=== PATIENT | female | born 1980 | race Caucasian/White ===

== ENCOUNTER 2016-12-23 21:04 | Emergency (ER) | payer OTHER ==
[2016-12-23 21:20] VITALS: BP 125/71
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
== END 2016-12-23 22:48 | disposition home or self-care (01) ==
LOC: UCEAST 21:04
DX: S39.012A Strain of muscle, fascia and tendon of lower back, initial encounter (principal); X58.XXXA Exposure to other specified factors, initial encounter; Z88.0 Allergy status to penicillin; Z88.2 Allergy status to sulfonamides; Y92.9 Unspecified place or not applicable
CPT/HCPCS: 81003; 99211; G0463

== ENCOUNTER 2017-03-18 14:02 | Emergency (ER) | payer OTHER ==
[2017-03-18 14:30] VITALS: BP 123/74
--- NOTE | 2017-03-18 14:50 | UC ---
Skin Complaint HPI - HPI Summary HPI Summary: rash on chest wall after having 24 hour cardiac electrodes attached--red raised and itchy has had reactions to other adhesives in the past - History of Current Complaint Chief Complaint: UCSkin Time Seen by Provider: 03/18/17 14:39 Stated Complaint: RASH Hx Obtained From: Patient Hx Last Menstrual Period: 2 years ?: No Onset/Duration: Sudden Onset, Lasting Days, Still Present Skin Exposure Onset/Duration: Days Ago - 2 -3 days ago Timing: Constant Onset Severity: Mild Current Severity: Moderate Pain Intensity: 5 - itching Location: Discrete - chest wall Character: Swelling, Redness, Raised Aggravating: Nothing Alleviating: Nothing Associated Signs & Symptoms: Positive: Rash, Tenderness Related History: Possible Reaction to: Environmental Exposure - adhesive - Allergy/Home Medications Allergies/Adverse Reactions: Allergies Allergy/AdvReac Type Severity Reaction Status Date / Time Clarithromycin [From Biaxin] Allergy Severe HORRIBLE Verified 03/18/17 14:22 TASTE IN MOUTH, OTHERS UNKNOWN Sulfa Antibiotics Allergy Severe Rash Verified 03/18/17 14:22 Adhesive Tape Allergy Rash Verified 03/18/17 14:22 Cephalexin [From Keflex] Allergy Rash Verified 03/18/17 14:22 Penicillins Allergy Rash Verified 03/18/17 14:22 ENVIRONMENTAL/SEASONAL Allergy ITCHY Uncoded 03/18/17 14:22 WATERY EYES, SNEEZING Review of Systems Constitutional: Negative Skin: Rash - anterior chest wall where cardiac electrodes were placed for a 24 hour holter monitor Eyes: Negative ENT: Negative Respiratory: Negative Cardiovascular: Negative Gastrointestinal: Negative Genitourinary: Negative Motor: Negative Neurovascular: Negative Musculoskeletal: Negative Neurological: Negative Psychological: Negative All Other Systems Reviewed And Are Negative: Yes PMH/Surg Hx/FS Hx/Imm Hx Previously Healthy: Yes GI/ History: Gastroesophageal Reflux Other History Of: Negative For: HIV, Hepatitis B, Hepatitis C - Surgical History Surgical History: Yes Surgery Procedure, Year, and Place: Essure procedure - Family History Known Family History: Positive: Cardiac Disease, Hypertension - Social History Occupation: Employed Full-time Lives: With Family Alcohol Use: Rare Substance Use Type: None Smoking Status (MU): Never Smoked Tobacco Physical Exam Triage Information Reviewed: Yes Appearance: Well-Appearing, No Pain Distress, Well-Nourished Vital Signs: Initial Vital Signs Temp 97.8 F 03/18/17 14:24 Pulse 73 03/18/17 14:24 Resp 16 03/18/17 14:24 BP 123/74 03/18/17 14:24 Pulse Ox 98 03/18/17 14:24 Vital Signs Reviewed: Yes Eye Exam: Normal Eyes: Positive: Conjunctiva Clear ENT Exam: Normal ENT: Positive: Normal ENT inspection, Hearing grossly normal. Negative: Nasal congestion, Nasal drainage, Trismus, Muffled/hoarse voice Dental Exam: Normal Neck exam: Normal Neck: Positive: Supple, Nontender Respiratory Exam: Normal Respiratory: Positive: No respiratory distress, No accessory muscle use Cardiovascular Exam: Normal Cardiovascular: Positive: RRR, Pulses Normal, Brisk Capillary Refill Musculoskeletal Exam: Normal Musculoskeletal: Positive: Strength Intact, ROM Intact, No Edema Neurological Exam: Normal Neurological: Positive: Alert, Muscle Tone Normal Psychological Exam: Normal Skin Exam: Other Skin: Positive: Other - Red raise itchy rash from cardiac electrodes place -Sunday Course/Dx - Course Course Of Treatment: gentle soap and water wash, lidex cream---follow with pcp prn - Differential Diagnoses - Skin Complaint Differential Diagnoses: Allergic Reaction, Cellulitis, Impetigo - Diagnoses Provider Diagnoses: Localized reaction to skin adhesive Discharge - Discharge Plan Condition: Stable Disposition: HOME Prescriptions: Fluocinonide 0.05% CM(NF) [Lidex 0.05% CREAM(NF)] 1 applic .SEE ORDER BID #60 gm Patient Education Materials: Diphenhydramine (By mouth), General Allergic Reaction (ED) Referrals: Syed Harmon MD [Primary Care Provider] - If Needed
== END 2017-03-18 14:54 | disposition home or self-care (01) ==
LOC: UCEAST 14:02
DX: T78.40XA Allergy, unspecified, initial encounter (principal); Z88.0 Allergy status to penicillin; Z88.2 Allergy status to sulfonamides
CPT/HCPCS: 99212; G0463

== ENCOUNTER 2018-02-11 20:34 | Emergency (ER) | payer OTHER ==
[2018-02-11 20:50] VITALS: BP 137/92
--- NOTE | 2018-02-11 22:12 | UC ---
Hand/Wrist HPI - HPI Summary HPI Summary: 37 yo female noted painful lump 2nd MCP joint pain increasing - History Of Current Complaint Chief Complaint: UCUpperExtremity Stated Complaint: BUMP ON HAND Time Seen by Provider: 02/11/18 21:57 Hx Obtained From: Patient Hx Last Menstrual Period: 4-5 yrs ago Onset/Duration: Gradual Onset, Lasting Weeks Severity Initially: Mild Severity Currently: Moderate Pain Intensity: 8 - touching it Pain Scale Used: 0-10 Numeric Character Of Pain: Aching, Throbbing Aggravating Factor(s): Movement Related History: Dominant Hand Right - Allergies/Home Medications Allergies/Adverse Reactions: Allergies Allergy/AdvReac Type Severity Reaction Status Date / Time Adhesive Tape Allergy Rash Verified 03/18/17 14:22 cephalexin [From Keflex] Allergy Rash Verified 02/11/18 20:52 clarithromycin [From Biaxin] Allergy See Comment Verified 02/11/18 20:53 Penicillins Allergy Rash Verified 02/11/18 20:52 Sulfa (Sulfonamide Allergy Rash Verified 02/11/18 20:53 Antibiotics) ENVIRONMENTAL/SEASONAL Allergy ITCHY Uncoded 03/18/17 14:22 WATERY EYES, SNEEZING PMH/Surg Hx/FS Hx/Imm Hx Previously Healthy: Yes Other History Of: Negative For: HIV, Hepatitis B, Hepatitis C - Surgical History Surgical History: Yes Surgery Procedure, Year, and Place: Essure procedure - Family History Known Family History: Positive: Cardiac Disease, Hypertension - Social History Alcohol Use: Rare Substance Use Type: None Smoking Status (MU): Never Smoked Tobacco Review of Systems Constitutional: Negative Skin: Negative Eyes: Negative ENT: Negative Respiratory: Negative Cardiovascular: Negative Gastrointestinal: Negative Genitourinary: Negative Motor: Negative Neurovascular: Negative Musculoskeletal: Arthralgia Neurological: Negative Psychological: Negative Is Patient Immunocompromised?: No All Other Systems Reviewed And Are Negative: Yes Physical Exam Triage Information Reviewed: Yes Appearance: Well-Appearing, No Pain Distress, Well-Nourished Vital Signs: Initial Vital Signs Temp 97.8 F 02/11/18 20:47 Pulse 82 02/11/18 20:47 Resp 12 02/11/18 20:47 BP 137/92 02/11/18 20:47 Pulse Ox 99 02/11/18 20:47 Vital Signs Reviewed: Yes Eyes: Positive: Conjunctiva Clear ENT: Positive: Hearing grossly normal. Negative: Nasal congestion, Nasal drainage, Trismus, Muffled voice, Hoarse voice Neck: Positive: Supple Respiratory: Positive: Lungs clear, Normal breath sounds, No respiratory distress Cardiovascular: Positive: RRR, No Murmur Musculoskeletal: Positive: Strength Intact, ROM Intact, No Edema Neurological: Positive: Alert Psychological Exam: Normal Skin Exam: Normal Diagnostics - Radiology No standard instances Xray Interpretation: No Acute Changes Radiology Interpretation Completed By: ED Physician Hand/Wrist Course/Dx - Differential Dx/Diagnosis Provider Diagnoses: possible ganglion cyst in region of left 2nd MCP joint Discharge - Sign-Out/Discharge Documenting (check all that apply): Discharge/Admit/Transfer - Discharge Plan Condition: Stable Disposition: HOME Patient Education Materials: Ganglion Cysts (ED) Referrals: Valentin Manning MD [Medical Doctor] - As Soon As Possible Additional Instructions: splint for comfort yo may have a ganglion cyst - Billing Disposition and Condition Condition: STABLE Disposition: HOME Images Hands: 1 - swelling/cystic
--- NOTE | 2018-02-12 07:58 | RAD ---
INDICATION: Pain and swelling COMPARISON: None TECHNIQUE: AP, lateral, and oblique views were obtained. FINDINGS: The bony structures, joint spaces, and soft tissues are normal for age. IMPRESSION: NEGATIVE EXAMINATION.
== END 2018-02-11 22:45 | disposition home or self-care (01) ==
LOC: UCEAST 20:34
DX: R22.32 Localized swelling, mass and lump, left upper limb (principal); M25.542 Pain in joints of left hand; Z88.1 Allergy status to other antibiotic agents; Z88.0 Allergy status to penicillin; Z88.2 Allergy status to sulfonamides; Z91.048 Other nonmedicinal substance allergy status
CPT/HCPCS: 73140; 99212; G0463

== ENCOUNTER 2019-01-28 11:26 | Emergency (ER) | payer OTHER ==
--- OUTSIDE RECORDS SUMMARY | 2019-01-28 11:31 | XMS REPORT | Continuity of Care Document ---
:1980 External Reference #:[id number] Author Name Shira Patterson Care Team Providers Name Role Phone Syed Harmon MD Primary Care Physician Unavailable Payers Date Identification Numbers Payment Provider Subscriber Effective: 2007 Policy Number: [id number] [employer] Fabi Parson Medicaid PayID: [id number] [address] [address] [place] [address] Advance Directives Description No Information Available Problems Date Description Provider Status Onset: 04/25/2017 Difficulty breathing Mirella Oro MD Active Onset: 07/24/2017 Obstructive sleep apnea syndrome Fadumo Sales DNP, RN, Active EDUCATION SPEC-BC Onset: 02/14/2018 Ganglion of hand Valentin Manning MD Active Onset: 03/19/2018 Acquired hallux valgus Gabe Mitchell MD Active Onset: 03/19/2018 Disorder of joint of ankle Gabe Mitchell MD Active and/or foot Onset: 03/19/2018 Metatarsalgia Gabe Mitchell MD Active Onset: 03/19/2018 Tendon contracture Gabe Mitchell MD Active Onset: 03/19/2018 Derangement of knee Gabe Mitchell MD Active Family History Date Family Member(s) Observation Comments Father Diabetes Father Throat Cancer Mother Heart Disease Social History Type Date Description Comments Sex Unknown Marital Status Lives With Lives With Children Occupation Currently Working Account Service Representative at [employer] Tobacco Use Start: Unknown Never Smoked Cigarettes Smoking Status Reviewed: 12/31/18 Never Smoked Cigarettes ETOH Use Rarely consumes alcohol Tobacco Use Start: Unknown Patient has never smoked Recreational Drug Use Denies Drug Use Exercise Type/Frequency Does not exercise Allergies, Adverse Reactions, Alerts Date Description Reaction Status Severity Comments 04/25/2017 Penicillins Active Rash 04/25/2017 Keflex Active Rash 04/25/2017 Biaxin Active Medications Medication Date Status Form Strength Qnty SIG Indications Ordering Provider Prilosec OTC Active Tablets DR 20mg 1 tab po [place], bid MD Marcel ALL Day Active Tablets 10mg 1 tab po Breiman, Allergy qd MD Syed Advil Active Capsules 200mg as Unknown needed Hyoscyamine Hx Tablets ER 0.375mg 1 tab po [place], Sulfate ER - Unknown 12HR bid MD Marcel Montelukast Hx Tablets 10mg 1 tab po [place]iman, Sodium - Unknown prn MD Syed Probiotic Hx Capsules 4 caps Unknown - by mouth 07/23/2017 every day Tylenol Extra Hx Tablets 500mg as Unknown Strength - needed 02/13/2018 Probiotic Hx Capsules once a Unknown Colon Support - Unknown day Immunizations Description No Information Available Vital Signs Date Vital Result Comment 12/31/2018 1:22pm Height 67 inches 5'7" Weight 243.00 lb Heart Rate 81 /min BP Systolic Sitting 110 mmHg Rue Leg Cuff BP Diastolic Sitting 78 mmHg Rue Leg Cuff Respiratory Rate 16 /min O2 % BldC Oximetry 97 % on Ra BMI (Body Mass Index) 38.1 kg/m2 07/03/2018 2:06pm Height 67 inches 5'7" Weight 230.00 lb BP Systolic 118 mmHg BP Diastolic 74 mmHg Respiratory Rate 18 /min Pain Level 0 BMI (Body Mass Index) 36.0 kg/m2 05/15/2018 3:29pm Height 67 inches 5'7" Weight 230.00 lb BP Systolic 124 mmHg BP Diastolic 72 mmHg Body Temperature 98.1 F Pain Level 6 BMI (Body Mass Index) 36.0 kg/m2 03/19/2018 8:38am Height 67 inches 5'7" Weight 225.00 lb BP Systolic 122 mmHg BP Diastolic 74 mmHg Respiratory Rate 18 /min Body Temperature 97.3 F Pain Level 6 BMI (Body Mass Index) 35.2 kg/m2 02/14/2018 10:36am Height 67 inches 5'7" Weight 225.00 lb Heart Rate 74 /min BP Systolic 117 mmHg BP Diastolic 74 mmHg Respiratory Rate 16 /min Pain Level 5 BMI (Body Mass Index) 35.2 kg/m2 09/14/2017 10:12am Height 67 inches 5'7" Weight 225.00 lb no shoes or clothes Heart Rate 86 /min BP Systolic Sitting 118 mmHg Rue large cuff BP Diastolic Sitting 80 mmHg Rue large cuff Respiratory Rate 16 /min O2 % BldC Oximetry 98 % On Ra BMI (Body Mass Index) 35.2 kg/m2 07/24/2017 10:05am Height 67 inches 5'7" Weight 231.00 lb Heart Rate 76 /min BP Systolic Sitting 100 mmHg BP Diastolic Sitting 68 mmHg Respiratory Rate 14 /min O2 % BldC Oximetry 99 % BMI (Body Mass Index) 36.2 kg/m2 04/25/2017 7:53am Height 67 inches 5'7" Weight 233.00 lb Heart Rate 80 /min BP Systolic Sitting 112 mmHg BP Diastolic Sitting 84 mmHg Respiratory Rate 16 /min O2 % BldC Oximetry 98 % room air BMI (Body Mass Index) 36.5 kg/m2 Neck Circumference in inches 16.75 Results Description No Information Available Procedures Date Code Description Status 06/05/2017 46888 Polysomnography Sleep Staging 4+ Parameters W/Cpap Completed 03/16/2017 46405 Holter Monitor Review (24 hr)dr review & interp only Completed 08/26/2009 80972 Rad Exam; Knee Comp Completed 08/26/2009 48905 Rad Exam; Knee Comp Completed Encounters Type Date Location Provider Dx Diagnosis Office Visit 07/03/2018 Orthopedic Services Gabe Mitchell 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 Plan of Treatment 12/31/2018 - Fadumo Sales DNP, RN, EDUCATION SPEC-BCG47.33 Obstructive sleep apnea ( adult) (pediatric)Comments:AHI of 33.4 per hour oxygen maverick 88%BMI 35.2. On CPAP AHI 2.9/hour, normalFollow up:1 yearRecommendations:Continue PAP device, Benefitting and compliant with treatment. Cleaning Wipe off mask daily (baby wipe-no scent, or warm water) Clean mask, tubing, filter, and water chamber weekly in mild no scent dish soap and water. Hang to dry. If you have any sleepiness while driving you MUST avoid operating a vehicle or machinery. If you have difficulty with your equipment, or need to replace your mask or hoses, please contact your homecare agency. A weight change of 20 pounds or more may have an effect onyour equipment; if you are experiencing problems please call for an appointment. If you have any further questions, please call the [facility] at [phone].Z68.38 Body mass index (BMI) 38.0-38.9, adultRecommendations:Continue with weight loss efforts, the machine pressures will adjust as you lose weight.
[2019-01-28 11:36] VITALS: BP 123/80
--- NOTE | 2019-01-28 12:22 | UC ---
Back Pain HPI - HPI Summary HPI Summary: 38 yo female presents with right lower back pain for the last 3 weeks. She tells me that about 3 weeks ago she was going to get out of her truck and felt a pop in her right lower back. Did not have any pain at the time, but the next day developed pain that radiated down the back of her right leg. Pain has been persistent since that time. Pain is worse when going up and down stairs or going from a sitting to a standing position. She has been taking aleve for her discomfort with little relief. She mentions that she has a history of lower back degenerative disease. Denies numbness, tingling, dysuria, saddle anesthesia , or loss of bowel/bladder control. - History of Current Complaint Chief Complaint: UCBackPain Stated Complaint: R HIP INJURY Time Seen by Provider: 01/28/19 12:21 Hx Obtained From: Patient Hx Last Menstrual Period: 4-5 yrs ago Onset/Duration: Sudden Onset Timing: Constant Severity Initially: Severe Severity Currently: Severe Pain Intensity: 9 Pain Scale Used: 0-10 Numeric - Allergies/Home Medications Allergies/Adverse Reactions: Allergies Allergy/AdvReac Type Severity Reaction Status Date / Time Adhesive Tape Allergy Rash Verified 03/18/17 14:22 cephalexin [From Keflex] Allergy Rash Verified 02/11/18 20:52 clarithromycin [From Biaxin] Allergy See Comment Verified 02/11/18 20:53 coconut Allergy Abdominal Verified 01/28/19 11:37 Pain Penicillins Allergy Rash Verified 02/11/18 20:52 strawberry Allergy Abdominal Verified 01/28/19 11:37 Pain Sulfa (Sulfonamide Allergy Rash Verified 02/11/18 20:53 Antibiotics) ENVIRONMENTAL/SEASONAL Allergy ITCHY Uncoded 03/18/17 14:22 WATERY EYES, SNEEZING vega Allergy Abdominal Uncoded 01/28/19 11:37 Pain Home Medications: Home Medications Naproxen Sodium [Aleve] 220 mg PO 01/28/19 [History] PMH/Surg Hx/FS Hx/Imm Hx - Additional Past Medical History Additional PMH: Seasonal allergies GI/ History: Gastroesophageal Reflux Other History Of: Negative For: HIV, Hepatitis B, Hepatitis C - Surgical History Surgical History: Yes Surgery Procedure, Year, and Place: Essure procedure - Family History Known Family History: Positive: Cardiac Disease, Hypertension - Social History Lives: With Family Alcohol Use: Rare Substance Use Type: None Smoking Status (MU): Never Smoked Tobacco Review of Systems All Other Systems Reviewed And Are Negative: Yes Constitutional: Positive: Negative Skin: Positive: Negative Respiratory: Positive: Negative Cardiovascular: Positive: Negative Gastrointestinal: Positive: Negative Genitourinary: Positive: Negative Neurovascular: Positive: Negative Musculoskeletal: Positive: Other: - Right low back pain Neurological: Positive: Negative Psychological: Positive: Negative Physical Exam - Summary Physical Exam Summary: GENERAL: NAD. WDWN. No pain distress. SKIN: No rashes, sores, lesions, or open wounds. NECK: Supple. FROM. Nontender. No lymphadenopathy. CHEST: CTAB. No r/r/w. No accessory muscle use. Breathing comfortably and in no distress. CV: RRR. Without m/r/g. Pulses intact. Cap refill <2seconds MSK: TTP over RIGHT SI. Pain with flexion and extension of spine. Positive SLR on right for low back pain without radiation. Strength 5/5 B/L LEs including dorsiflexion and plantar flexion. FROM B/L LEs. No edema. NEURO: Alert. Sensations intact B/L LEs L3-S1. Reflexes intact PSYCH: Age appropriate behavior. Triage Information Reviewed: Yes Vital Signs: Initial Vital Signs Temp 97.7 F 01/28/19 11:32 Pulse 77 01/28/19 11:32 Resp 18 01/28/19 11:32 BP 123/80 01/28/19 11:32 Pulse Ox 100 01/28/19 11:32 Vital Signs Reviewed: Yes Back Pain Course/Dx - Course Course Of Treatment: XR: IMPRESSION: Degenerative disc disease at L2-L3 and L3-L4. Suspect sciatica. Rx for flexeril and prednisone. Advised to follow up with physical therapy and PCP for a recheck in a few weeks. - Differential Dx/Diagnosis Provider Diagnosis: Sciatica Discharge - Sign-Out/Discharge Documenting (check all that apply): Patient Departure All imaging exams completed and their final reports reviewed: Yes - Discharge Plan Condition: Stable Disposition: HOME Prescriptions: Cyclobenzaprine TAB* [Flexeril 10 MG TAB*] 10 mg PO BID PRN #14 tab PRN Reason: Pain predniSONE TAB* [Deltasone 20 MG TAB*] 20 mg PO DAILY #14 tab Patient Education Materials: Sciatica (ED), Piriformis Syndrome (ED) Referrals: Syed Harmon MD [Primary Care Provider] - Additional Instructions: If you develop a fever, shortness of breath, chest pain, new or worsening symptoms - please call your PCP or go to the ED. 1) Continue taking advil/aleve for your back pain 2) I recommend that you schedule an appointment with Physical Therapy for further treatment of your back pain 3) Please schedule a follow up with your Primary Doctor in 2-3 weeks for a recheck of your back pain - Billing Disposition and Condition Condition: STABLE Disposition: Home
== END 2019-01-28 12:58 | disposition home or self-care (01) ==
LOC: UCEAST 11:26
DX: M54.41 Lumbago with sciatica, right side (principal); M51.36 Other intervertebral disc degeneration, lumbar region; K21.9 Gastro-esophageal reflux disease without esophagitis; Z88.1 Allergy status to other antibiotic agents; Z88.0 Allergy status to penicillin; Z88.2 Allergy status to sulfonamides; Z91.018 Allergy to other foods; Z91.048 Other nonmedicinal substance allergy status
CPT/HCPCS: 72110; 99212; G0463

== ENCOUNTER 2019-08-21 09:10 | Emergency (ER) | payer OTHER ==
--- OUTSIDE RECORDS SUMMARY | 2019-08-21 09:16 | XMS REPORT | Continuity of Care Document ---
:1980 External Reference #:[id number] Author Name Candace EllerJennifer arreaga Address [address] [place] [address] Care Team Providers Name Role Phone Syed Harmon MD - Family Care Team Information Custodian Manager Medicine Syed Field ([place] - Direct) Care Team Information Custodian Manager - Otolaryngology Juan Miguel Nova MD - Care Team Information Custodian Manager [phone] Otolaryngology Gastroenterology [facility] - Care Team Information Custodian Manager [phone] Gastroenterology Marcel Cisneros MD - Gastroenterology Care Team Information Custodian Manager [phone] Problems Active Problems Provider Date Allergic condition Felicia Goodson M.D. Onset: 12/12/2011 Gastroesophageal reflux disease Felicia Goodson M.D. Onset: 12/12/2011 Obesity Felicia Goodson M.D. Onset: 12/12/2011 Acute sinusitis Ankit Taylor M.D. Onset: 10/10/2012 Chest pain Syed Harmon M.D. Onset: 05/06/2014 Social History Type Date Description Comments Sex Unknown Tobacco Use Start: Unknown "Social" Smoker as teenager, not now ETOH Use Rare Recreational Drug Use Denies Drug Use Tobacco Use Start: Unknown Nonsmoker Smoking Status Reviewed: 07/14/19 Nonsmoker Allergies, Adverse Reactions, Alerts Active Allergies Reaction Severity Comments Date Penicillin Rash 06/09/2008 Keflex Rash 06/09/2008 Biaxin 09/11/2014 Strawberries 07/14/2019 Coconut 07/14/2019 Nino 07/14/2019 Medications Active Medications SIG Qnty Indications Ordering Provider Date Doxycycline Hyclate 1 by mouth twice 20tabs Candace Marquez, 07/14/2019 a day Afnp-C 100mg Tablets Zyrtec Allergy Take 1 Tablet By 30tabs Syed Harmon, 06/09/2008 10mg Mouth Every Day M.D. Tablets Prilosec OTC 1 po bid 30tabs Unknown 20mg Tablets DR Soni 1 po bid Unknown 0.375mg Tablets ER 12HR Medications Administered in Office Medication SIG Qnty Indications Ordering Provider Date Injection Subcutaneous Or Kelly Camilo, 05/26/2010 Intramuscular M.D. Injection Injection Subcutaneous Or Kelly Camilo, 02/24/2010 Intramuscular M.D. Injection Injection Subcutaneous Or Kelly Camilo, 11/29/2009 Intramuscular M.D. Injection Immunizations CPT Code Status Date Vaccine Lot # [id number] Given 10/04/2018 Influenza vac quadrivalent preservative free 6 months and up [id number] Given 08/29/2017 Influenza vac quadrivalent preservative free 6 [id number] months and up [id number] Given 10/25/2015 Influenza Vac, Quadrivalent, Slit Virus, Im [id number] Given 06/17/2009 DO Not Use Split Influenza Virus Vaccine [id number] 97511 Given 11/11/2008 Tdap Tetanus, W Pertussis [id number] Given 08/27/2008 DO Not Use Split Influenza Virus Vaccine [id number] Vital Signs Date Vital Result Comment 07/14/2019 3:25pm BP Systolic 112 mmHg BP Diastolic 72 mmHg Heart Rate 80 /min Body Temperature 97.2 F Height 67.5 inches 5'7.50" Weight 252.00 lb BMI (Body Mass Index) 38.9 kg/m2 06/07/2018 3:36pm BP Systolic 122 mmHg BP Diastolic 76 mmHg Heart Rate 70 /min Body Temperature 98.0 F Respiratory Rate 16 /min Height 67.5 inches 5'7.50" Weight 233.38 lb BMI (Body Mass Index) 36.0 kg/m2 Right Visual Acuity Distance 20/20 w/ corrected lenses Left Visual Acuity Distance 20/20 w/ corrected lenses Results Description No Information Available Procedures Description No Information Available Medical Devices Description No Information Available Encounters Description No Information Available Assessments Date Code Description Provider 07/14/2019 J01.00 Acute maxillary sinusitis, unspecified Candace EllerJennifer arreaga Plan of Treatment 07/14/2019 - Panmendel-CJ01.00 Acute maxillary sinusitis, unspecifiedAllNew Medication:Doxycycline Hyclate 100 mg - 1 by mouth twice a dayComments:Medication Management Patient Understands medications she's taking? Yes No Are there Barriers to Adherence? Yes No Has the patient been asked about herbal supplements and therapies, and OTC meds? Yes No Care Plan1. Patient has been queried about patient's goals/ preferences and functional/lifestyle goals at relevant visits. If relevant, describe: na2. Treatment goals as explained to the patient: abovesx resolution 3. Are there barriers to meeting treatment goals? Yes No If Yes, please describe:4. Self-Management goals as described to the patient: Yes No cont sx rx , will add doxy , resume flonase sue if your allergies are bothering you f/u if no better or if sx worsen or persist Functional Status Description No Information Available Mental Status Description No Information Available Referrals Description No Information Available
[2019-08-21 09:19] VITALS: BP 145/88
--- NOTE | 2019-08-21 10:02 | UC ---
Throat Pain/Nasal Etienne HPI - HPI Summary HPI Summary: 39-year-old female with cold symptoms over the past 3 days with runny nose, head congestion and sore throat and postnasal drainage. She denies any fever or chills. - History of Current Complaint Chief Complaint: UCRespiratory Stated Complaint: SINUS ISSUE Time Seen by Provider: 08/21/19 09:58 Hx Obtained From: Patient Hx Last Menstrual Period: bcp ?: No Onset/Duration: Gradual Onset Severity: Mild Pain Intensity: 4 Cough: Nonproductive Associated Signs & Symptoms: Positive: Sinus Discomfort, Nasal Discharge - Allergies/Home Medications Allergies/Adverse Reactions: Allergies Allergy/AdvReac Type Severity Reaction Status Date / Time Adhesive Tape Allergy Rash Verified 08/21/19 09:18 cephalexin [From Keflex] Allergy Rash Verified 08/21/19 09:18 clarithromycin [From Biaxin] Allergy See Comment Verified 08/21/19 09:18 coconut Allergy Abdominal Verified 08/21/19 09:18 Pain Penicillins Allergy Rash Verified 08/21/19 09:18 strawberry Allergy Abdominal Verified 08/21/19 09:18 Pain Sulfa (Sulfonamide Allergy Rash Verified 08/21/19 09:18 Antibiotics) ENVIRONMENTAL/SEASONAL Allergy ITCHY Uncoded 08/21/19 09:18 WATERY EYES, SNEEZING vega Allergy Abdominal Uncoded 08/21/19 09:18 Pain PMH/Surg Hx/FS Hx/Imm Hx Previously Healthy: Yes GI/ History: Gastroesophageal Reflux Other History Of: Negative For: HIV, Hepatitis B, Hepatitis C - Surgical History Surgical History: Yes Surgery Procedure, Year, and Place: Essure procedure - Family History Known Family History: Positive: Cardiac Disease, Hypertension - Social History Alcohol Use: Rare Substance Use Type: None Smoking Status (MU): Never Smoked Tobacco Review of Systems All Other Systems Reviewed And Are Negative: Yes ENT: Positive: Sore Throat, Ear Ache - Right ear popping., Nasal Discharge, Sinus Congestion Respiratory: Positive: Cough - Nonproductive cough. Is Patient Immunocompromised?: No Physical Exam Triage Information Reviewed: Yes Appearance: Well-Appearing, No Pain Distress, Well-Nourished Vital Signs: Initial Vital Signs Temp 96.9 F 08/21/19 09:11 Pulse 100 08/21/19 09:11 Resp 20 08/21/19 09:11 BP 145/88 08/21/19 09:11 Pulse Ox 99 08/21/19 09:11 Vital Signs Reviewed: Yes Eyes: Positive: Conjunctiva Clear ENT: Positive: Pharyngeal erythema, Nasal congestion, Nasal drainage - Clear nasal coryza., TMs normal, Sinus tenderness, Uvula midline Neck: Positive: Supple, Nontender, No Lymphadenopathy Respiratory: Positive: Lungs clear, Normal breath sounds, No accessory muscle use, Respiratory distress Cardiovascular: Positive: RRR, No Murmur, Pulses Normal, Brisk Capillary Refill Musculoskeletal Exam: Normal Neurological Exam: Normal Psychological Exam: Normal Skin Exam: Normal Throat Pain/Nasal Course/Dx - Course Course Of Treatment: Rapid strep test: Negative Patient is comfortable here. She is going to try [id number] cold medicines. She also takes Flonase and is going to continue that. She is traveling to [place] on Sunday by airplane for 2-1/2 weeks therefore I advised her to follow up at any walk-in clinic if she has worsening symptoms next week. - Differential Dx/Diagnosis Provider Diagnosis: URI (upper respiratory infection) Discharge ED - Sign-Out/Discharge Documenting (check all that apply): Patient Departure All imaging exams completed and their final reports reviewed: No Studies - Discharge Plan Condition: Good Disposition: HOME Patient Education Materials: Upper Respiratory Infection (DC) Referrals: Syed Hamron MD [Primary Care Provider] - Additional Instructions: Increase fluids, [id number] cold medicine as we discussed. Continue your Flonase. Definite follow-up in a walk-in clinic while you're in [place] in approximately 5-6 days if no improvement. - Billing Disposition and Condition Condition: GOOD Disposition: Home
== END 2019-08-21 10:25 | disposition home or self-care (01) ==
LOC: UCEAST 09:10
DX: J06.9 Acute upper respiratory infection, unspecified (principal); R09.82 Postnasal drip; H92.09 Otalgia, unspecified ear; Z91.09 Other allergy status, other than to drugs and biological substances; Z88.1 Allergy status to other antibiotic agents; Z91.018 Allergy to other foods; Z88.0 Allergy status to penicillin; Z88.2 Allergy status to sulfonamides
CPT/HCPCS: 87651; 99211; G0463